=== PATIENT | female | born 1950 | race Caucasian/White ===

== ENCOUNTER 2016-03-11 17:53 | Emergency (ER) | payer MEDICARE, MEDICAID ==
[2016-03-11] MEDS ORDERED: hydrOXYzine 25 MG TAB ONE ×2 (18:41→18:42)
[2016-03-11] MEDS ORDERED: METHYLPRED SOD SUCC 125 MG/2 ML VIAL ONE (18:41)
[2016-03-11] MEDS ORDERED: FAMOTIDINE 20 MG TAB ONE (18:41)
== END 2016-03-11 19:30 | disposition home or self-care (01) ==
LOC: FASTR 17:53
DX: L50.9 Urticaria, unspecified (principal); L29.8 Other pruritus; F17.210 Nicotine dependence, cigarettes, uncomplicated
CPT/HCPCS: 96372; 99283; J2930